=== PATIENT | female | born 1995 | race Caucasian/White ===

== ENCOUNTER 2018-04-17 20:48 | Emergency (ER) | payer OTHER ==
[2018-04-17 21:00] VITALS: BP 114/69
[2018-04-17 21:48] LABS: ABSOLUTE EOSINOPHILS # (AUTO) 0.1 10^3/uL (0.0-0.6); ABSOLUTE LYMPHOCYTES (AUTO) 2.3 10^3/uL (0.5-4.7); ABSOLUTE MONOCYTES (AUTO) 1.2 10^3/uL (0.1-1.4); ABSOLUTE NEUT (AUTO) 10.5 10^3/uL (1.7-8.2); BASOPHILS % (AUTO) 0.1 % (0-2); EOSINOPHILS % (AUTO) 0.9 % (0-6); HEMATOCRIT 30.4 % (36.0-47.0); HEMOGLOBIN 10.2 g/dL (12.0-15.5); LYMPHOCYTES % (AUTO) 16.1 % (13-45); MEAN CORPUSCULAR HGB CONC 33.6 g/dL (32.0-36.0); MEAN CORPUSCULAR VOLUME 83 fl (80-97); MONOCYTES % (AUTO) 8.3 % (3-13); PLATELET COUNT 131 10^3/uL (150-450); RED BLOOD COUNT 3.66 10^6/uL (3.72-5.28); RED CELL DISTRIBUTION WIDTH 13.9 % (11.5-14.0); SEGMENTED NEUTROPHILS % (AUTO) 74.6 % (42-78); TOTAL CELLS COUNTED % (AUTO) 100 %; WHITE BLOOD COUNT 14.1 10^3/uL (4.0-10.5)
[2018-04-17 22:00] LABS: ALANINE AMINOTRANSFERASE 13 U/L (9-52); ALBUMIN 3.7 g/dL (3.5-5.0); ALKALINE PHOSPHATASE 90 U/L (38-126); ANION GAP 8 (5-19); ASPARTATE AMINO TRANSFERASE 15 U/L (14-36); BILIRUBIN,DIRECT 0.2 mg/dL (0.0-0.4); BILIRUBIN,TOTAL 0.4 mg/dL (0.2-1.3); BLOOD UREA NITROGEN 6 mg/dL (7-20); CALCIUM 9.5 mg/dL (8.4-10.2); CARBON DIOXIDE 26 mmol/L (22-30); CHLORIDE 104 mmol/L (98-107); CREATINE KINASE 31 U/L (30-135); GLUCOSE 81 mg/dL (75-110); POTASSIUM 4.1 mmol/L (3.6-5.0); SODIUM 138.2 mmol/L (137-145); TOTAL PROTEIN 6.8 g/dL (6.3-8.2)
[2018-04-17 22:12] LABS: CREATINE KINASE MB 0.29 ng/mL (<4.55)
[2018-04-17 22:13] LABS: TROPONIN I < 0.012 ng/mL
--- NOTE | 2018-04-17 22:33 | ER Document Report ---
ED General - General Chief Complaint: Chest Pain Stated Complaint: CHEST PAIN Time Seen by Provider: 04/17/18 22:23 Notes: 23-year-old female who is 29 weeks , presents the emergency department complaining of intermittent sharp stabbing upper substernal chest pain that has been going on for the past 2 weeks. She first noticed it rolling over in bed and thenit has shown up 2 or 3 times since then. She has some shortness of breath with the pain and a general feeling of pressure but denies any nausea, vomiting or diarrhea. Denies any cough or fevers. Denies any history of DVT or PE, denies any recent travel, denies family history of DVT or PE. Denies any vaginal bleeding, vaginal discharge, states that there has been no decrease in movement and denies any complications with this or prior pregnancies. TRAVEL OUTSIDE OF THE [place] IN LAST 30 DAYS: No - Related Data Allergies/Adverse Reactions: amoxicillin Allergy (Verified 04/17/18 21:07) Past Medical History - General Information source: Patient - Social History Smoking Status: Never Smoker Chew tobacco use (# tins/day): No Frequency of alcohol use: None Drug Abuse: None Family History: None Patient has suicidal ideation: No Patient has homicidal ideation: No Renal/ Medical History: Denies: Hx Peritoneal Dialysis Review of Systems - Review of Systems Constitutional: No symptoms reported EENT: No symptoms reported Cardiovascular: See HPI Respiratory: See HPI Female Genitourinary: See HPI, -: Yes All other systems reviewed and negative Physical Exam - Vital signs Vitals: Temp Pulse Resp BP Pulse Ox 98.7 F 87 16 114/69 100 04/17/18 20:59 04/17/18 20:59 04/17/18 20:59 04/17/18 20:59 04/17/18 20:59 Interpretation: Normal - Notes Notes: GENERAL: Alert, interacts well. No acute distress. HEAD: Normocephalic, atraumatic EYES: Pupils equal, round and reactive to light, extraocular movements intact. ENT: Oral mucosa moist, tongue midline. NECK: Full range of motion, supple, trachea midline. LUNGS: Clear to auscultation bilaterally, no wheezes, rales or rhonchi, no respiratory distress. HEART: Regular rate and rhythm, no murmurs, gallops, rubs. ABDOMEN: Gravid, I can feel the baby moving during palpation, appropriate for dates, nontender, bowel sounds present in all 4 quadrants. EXTREMITIES: Moves all 4 extremities spontaneously, no edema. No cyanosis. NEUROLOGICAL: Alert and oriented x3, normal speech. PSYCH: Normal mood, normal affect. SKIN: Warm, Dry, normal turgor, no rashes or lesions noted. Course - Re-evaluation Re-evalutation: 04/17/18 22:33 CBC shows leukocytosis that could be from although in the setting of chest pain and shortness of breath I feel it is prudent to check a chest x-ray, hemoglobin of 10.2 is consistent with anemia of , CMP unremarkable, cardiac enzymes negative 04/17/18 23:33 Chest x-ray shows right lower lobe pneumonia. Patient will be started on azithromycin and discharged home. - Vital Signs Vital signs: Temp Pulse Resp BP Pulse Ox 98.7 F 87 16 114/69 100 04/17/18 20:59 04/17/18 20:59 04/17/18 20:59 04/17/18 20:59 04/17/18 20:59 - Laboratory Result Diagrams: 04/17/18 21:13 04/17/18 21:13 Laboratory results interpreted by me: 04/17/18 04/17/18 21:13 21:13 WBC 14.1 H RBC 3.66 L Hgb 10.2 L Hct 30.4 L Plt Count 131 L Absolute Neutrophils 10.5 H BUN 6 L Creatinine 0.45 L Discharge - Discharge Clinical Impression: Right lower lobe pneumonia Qualifiers: Pneumonia type: due to unspecified organism Qualified Code(s): J18.1 - Lobar pneumonia, unspecified organism Qualifiers: Weeks of gestation: 29 weeks Qualified Code(s): Z3A.29 - 29 weeks gestation of Condition: Stable Disposition: HOME, SELF-CARE Additional Instructions: Pneumonia Your examination indicates that you have pneumonia. This is an infection of the lung tissue, usually caused by bacteria or a virus. Symptoms include cough, fever, shaking chills, chest pain, shortness of breath, and coughing up bloody sputum. Treatment for bacterial pneumonia includes rest, antibiotics for 10 to 14 days, increasing your clear liquid intake, a cool mist humidifier at your bedside, and fever medication. Often, a repeat chest X-ray is performed in a few weeks--even if you feel better--to ascertain whether the infection has completely resolved and no underlying lung problem is present. You should call the physician if you develop persistent vomiting, high fever that does not respond to fever medication, increasing shortness of breath , confusion, or lethargy. Also, failure to improve within two to three days is an indication for re-examination. Prescriptions: Azithromycin 250 mg PO DAILY #4 tablet
--- NOTE | 2018-04-17 22:34 | EKG REPORT ---
SEVERITY:- NORMAL ECG - SINUS RHYTHM : Confirmed by: Angelita Lara 17-Apr-2018 22:33:03
--- NOTE | 2018-04-17 23:24 | RADIOLOGY REPORT (SQ) ---
CXR - 1 View Clinical History: Shortness of breath Comparison: None. Technique: Single frontal view of the chest is submitted for review. Findings: Interstitial opacity in the right lower lobe. The lungs are adequately expanded without effusion. The cardiac silhouette measures within normal. Pulmonary vascularity is upper limits of normal. Osseous structures are within normal limits for age. Impression: Interstitial opacity in the right lower lobe. Please correlate for pneumonia.
[2018-04-17] MEDS ORDERED: AZITHROMYCIN 250 MG TABLET PO ONE (23:32)
== END 2018-04-18 00:14 | disposition home or self-care (01) ==
LOC: ER 20:48
DX: O99.513 Diseases of the respiratory system complicating pregnancy, third trimester (principal); J18.1 Lobar pneumonia, unspecified organism; O26.893 Other specified pregnancy related conditions, third trimester; R07.89 Other chest pain; R06.02 Shortness of breath; Z3A.29 29 weeks gestation of pregnancy; Z88.0 Allergy status to penicillin
CPT/HCPCS: 36415; 71046; 80053; 82550; 82553; 84484; 85025; 93005; 93010; 99285

== ENCOUNTER 2018-04-21 16:16 | Emergency (ER) | payer OTHER ==
--- NOTE | 2018-04-21 17:26 | ER Document Report ---
ED General - General Chief Complaint: Chest Pain Stated Complaint: CHEST PAIN Time Seen by Provider: 04/21/18 17:24 Mode of Arrival: Ambulatory Information source: Patient Notes: Chief complaint: Chest pain History of complain:( obtained from----patient) 23 years old female who was diagnosed with pneumonia month and 4 days ago, treated with Zithromax. She presents again with the pain over the left side of the chest on the similar area with on and off cough. No fever chills or other constitutional symptoms. Onset: As above Duration: Gradual Severity: Mild Quality: Sharp Context: As above Exacerbating factor and relieving factors: None REVIEW OF SYSTEMS: CONSTITUTIONAL : Denies fever, chills, or sweats. Denies recent illness. EENT: Denies eye, ear, throat, or mouth pain or symptoms. Denies nasal or sinus congestion or discharge. Denies throat, tongue, or mouth swelling or difficulty swallowing. CARDIOVASCULAR: Denies chest pain. Denies palpitations or racing or irregular heart beat. Denies ankle edema. RESPIRATORY: Denies cough, cold, or chest congestion. Denies shortness of breath, difficulty breathing, or wheezing. GASTROINTESTINAL: Denies distention. Denies nausea, vomiting, or diarrhea. Denies blood in vomitus, stools, or per rectum. Denies black, tarry stools. Denies constipation. GENITOURINARY: Denies difficulty urinating, painful urination, burning, frequency, blood in urine, or discharge. FEMALE GENITOURINARY: Denies vaginal bleeding, heavy or abnormal periods, irregular periods. Denies vaginal discharge or odor. MUSCULOSKELETAL: Denies back or neck pain or stiffness. Denies joint pain or swelling. SKIN: Denies rash, lesions or sores. HEMATOLOGIC : Denies easy bruising or bleeding. LYMPHATIC: Denies swollen, enlarged glands. NEUROLOGICAL: Denies confusion or altered mental status. Denies passing out or loss of consciousness. Denies dizziness or lightheadedness. Denies headache. Denies weakness or paralysis or loss of use of either side. Denies problems with gait or speech. Denies sensory loss, numbness, or tingling. Denies seizures. PSYCHIATRIC: Denies anxiety or stress. Denies depression, suicidal ideation, or homicidal ideation. ALL OTHER SYSTEMS REVIEWED AND NEGATIVE. PHYSICAL EXAMINATION: GENERAL: Well-appearing, well-nourished and in no acute distress. HEAD: Atraumatic, normocephalic. EYES: Pupils equal round and reactive to light, extraocular movements intact, conjunctiva are normal. ENT: Nares patent, oropharynx clear without exudates. Moist mucous membranes. NECK: Normal range of motion, supple without lymphadenopathy LUNGS: Breath sounds clear to auscultation bilaterally and equal. No wheezes rales or rhonchi. HEART: Regular rate and rhythm without murmurs ABDOMEN: Soft, nontender, nondistended abdomen. No guarding, no rebound. No masses appreciated. Examination of genitals-deferred Musculoskeletal: Normal range of motion, no pitting or edema. No cyanosis. NEUROLOGICAL: Cranial nerves grossly intact. Normal speech, normal gait. Normal sensory, motor exams PSYCH: Normal mood, normal affect. SKIN: Warm, Dry, normal turgor, no rashes or lesions noted. Dictation was performed using [employer] voice recognition software TRAVEL OUTSIDE OF THE [place] IN LAST 30 DAYS: No - HPI Notes: Dictated - Related Data Allergies/Adverse Reactions: amoxicillin Allergy (Verified 04/21/18 17:13) Past Medical History - Social History Smoking Status: Never Smoker Chew tobacco use (# tins/day): No Frequency of alcohol use: None Drug Abuse: None Family History: None, Reviewed & Not Pertinent Patient has suicidal ideation: No Patient has homicidal ideation: No Renal/ Medical History: Denies: Hx Peritoneal Dialysis Past Surgical History: Reports: Hx Cholecystectomy Review of Systems - Review of Systems Notes: Dictated Physical Exam - Vital signs Vitals: Temp Pulse Resp BP Pulse Ox 99.0 F 84 16 115/60 100 04/21/18 16:56 04/21/18 16:56 04/21/18 16:56 04/21/18 16:56 04/21/18 16:56 - Notes Notes: Dictated Course - Vital Signs Vital signs: Temp Pulse Resp BP Pulse Ox 99.0 F 84 16 115/60 100 04/21/18 16:56 04/21/18 16:56 04/21/18 16:56 04/21/18 16:56 04/21/18 16:56 - Diagnostic Test Radiology reviewed: Image reviewed, Reports reviewed - Persistent right lower lobe increased markings. Radiology results interpreted by me: 04/21/18 18:33 Compression of the x-ray from the eighth 10/2017 to today's x-ray there is marked improvement of the right lower lobe infiltrate but still show some increased bronchovascular markings. Discharge - Discharge Clinical Impression: Chest wall pain Right lower lobe pneumonia Qualifiers: Pneumonia type: due to unspecified organism Qualified Code(s): J18.1 - Lobar pneumonia, unspecified organism Condition: Fair Disposition: HOME, SELF-CARE Instructions: Chest Wall Pain ([facility]) Prescriptions: Azithromycin [Zithromax 250 mg Tablet] 250 mg PO ASDIR PRN #6 tablet PRN Reason:
--- NOTE | 2018-04-21 17:47 | RADIOLOGY REPORT (SQ) ---
EXAM DESCRIPTION: CHEST 2 VIEWS COMPLETED DATE/TIME: 04/21/2018 5:34 pm REASON FOR STUDY: Pneumonia COMPARISON: 04/17/2018 EXAM PARAMETERS: NUMBER OF VIEWS: two views TECHNIQUE: Digital Frontal and Lateral radiographic views of the chest acquired. RADIATION DOSE: NA LIMITATIONS: none FINDINGS: LUNGS AND PLEURA: Again there is some prominence of the bronchovascular markings extending into the right lung base. No acute consolidations or pleural effusions are identified. No pneumoth orax is seen MEDIASTINUM AND HILAR STRUCTURES: No masses or contour abnormalities. HEART AND VASCULAR STRUCTURES: Heart normal size. No evidence for failure. BONES: No acute findings. HARDWARE: None in the chest. OTHER: No other significant finding. IMPRESSION: Again there is some prominence of the bronchovascular markings extending into the right lung base. No acute consolidations or pleural effusions are identified. Other findings as noted abo ve TECHNICAL DOCUMENTATION: JOB ID: [id number] [employer]- All Rights Reserved Reading location - IP/workstation name: [email or web address]
[2018-04-21 19:35] VITALS: BP 111/60
== END 2018-04-21 19:35 | disposition home or self-care (01) ==
LOC: ER 16:16
DX: J18.1 Lobar pneumonia, unspecified organism (principal); R07.9 Chest pain, unspecified; Z90.49 Acquired absence of other specified parts of digestive tract; Z88.0 Allergy status to penicillin
CPT/HCPCS: 71046; 99284

== ENCOUNTER 2018-06-30 03:26 | Inpatient (IN) | payer OTHER ==
[2018-06-30 04:10] LABS: APPEARANCE,URINE SLIGHTLY-CLOUDY; BILIRUBIN,URINE NEGATIVE (NEGATIVE); COLOR,URINE YELLOW; GLUCOSE, URINE NEGATIVE (NEGATIVE); KETONES,URINE NEGATIVE (NEGATIVE); LEUKOCYTE ESTERASE,URINE SMALL (NEGATIVE); NITRITE,URINE NEGATIVE (NEGATIVE); PROTEIN,URINE NEGATIVE (NEGATIVE); URINE SPECIFIC GRAVITY 1.011; UROBILINOGEN,URINE NEGATIVE mg/dL (<2.0)
[2018-06-30 04:31] LABS: URINE AMPHETAMINES SCREEN NEGATIVE; URINE BARBITURATES SCREEN NEGATIVE; URINE BENZODIAZEPINES SCREEN NEGATIVE; URINE COCAINE SCREEN NEGATIVE; URINE MARIJUANA (THC) SCREEN NEGATIVE; URINE METHADONE SCREEN NEGATIVE; URINE PHENCYCLIDINE SCREEN NEGATIVE
[2018-06-30] MEDS ORDERED: RINGERS SOLUTION,LACTATED 1,000 ML IV ONE (06:15)
[2018-06-30] MEDS ORDERED: LIDOCAINE 1% INJ-PF (10 MG/ML) 30 ML SDV ONE (06:27)
[2018-06-30] MEDS ORDERED: OXYTOCIN/NORMAL SALINE 20 UNIT/1,000 ML RTUINJ ONE (06:27)
[2018-06-30] MEDS ORDERED: MISOPROSTOL 0.2 MG TABLET ONE ×2 (06:27→08:09)
--- NOTE | 2018-06-30 07:02 | Admission Physical ---
Datetime Report Generated by CPN: 06/30/2018 07:02 CURRENT ADMISSION Chief Complaint: Uterine Contractions Indication for Induction: Not Applicable Admit Impression : Term, Intrauterine ; Active Labor; Intact Membranes Admit Plan: Admit to Unit; Initiate Labor Protocol ALLERGIES Medication Allergies: Yes Medication Allergies: Amoxicillin (06/30/2018) Latex: No Latex Allergies OBSTETRICAL HISTORY EDC: 07/03/2018 00:00 : 2 Para: 1 Term: 1 : 0 SAB: 0 IAB: 0 Ectopic: 0 Livin Cesareans: 0 VBACs: 0 Multiple Births: 0 Gestational Diabetes: No Rh Sensitization: No Incompetent Cervix: No JAC: No Infertility: No ART Treatment: No Uterine Anomaly: No IUGR: No Hx Previous C/S: No Macrosomia: No Hx Loss/Stillborn: No PIH: No Hx : No Placenta Previa/Abruption: No Depression/PP Depression: No PTL/PROM: No Post Hemorrhage: No Current Procedures: Ultrasound; NST Obstetrical History Comments: G1- Baby girl born 11/2014 @ 41 weeks vaginal delivery G2- Current SEE RECORDS Alcohol: No Marijuana : No Cocaine: No Other Illicit Drugs: No Cigarettes: Never Smoker. [id number] MEDICAL HISTORY Diabetes: No Blood Transfusion: No Pulmonary Disease (Asthma, TB): No Breast Disease: No Hypertension: No Drafter Electrical Surgery: No Heart Disease: No Hosp/Surgery: Yes Autoimmune Disorder: No Anesthetic Complications: No Kidney Disease: No Abnormal Pap Smear: No Neuro/Epilepsy: No Psychiatric Disorders: No Other Medical Diseases: No Hepatitis/Liver Disease: No Significant Family History: No Varicosities/Phlebitis: No Trauma/Violence : No Thyroid Dysfunction: No Medical History Comments: Cholescystectomy 2017, wisdom teeth removed INFECTIOUS HISTORY Gonorrhea: No Genital Herpes: No Chlamydia: No Tuberculosis: No Syphilis: No Hepatitis: No HIV/AIDS Exposure: No Rash or Viral Illness: No HPV: No PHYSICAL EXAM General: Normal HEENT: Normal Neurologic: Normal Thyroid: Deferred Heart: Normal Lungs: Normal Breast: Deferred Back: Normal Abdomen: Normal Genitourinary Exam: Normal Extremities: Normal DTRs: Normal Pelvic Type: Adequate Vital Signs: Reviewed VAGINAL EXAM Dilatation: 4 Effacement: 80 Station: -1 Contraction Comments: q 2-3 MEMBRANES Membranes: Intact FETUS A EGA: 39.4 Monitoring: External US FHR- Baseline: 125 Variability: Moderate 6-25bpm Accelerations: 15X15 Decelerations: None FHR Category: Category I Presentation: Vertex Admit Comment: 23yo at 39+4ega presents with regular uterine ctx and noted cervical change from 1cm to 4cm. Niece has turners syndrome - Informaseq normal. Pneumonia 04/21/2018 - treated and resolved. GBS negative. Admit to Labor and delivery for active labor. Anticipate . PLANS FOR LABOR AND DELIVERY Labor and Delivery: None Pain Management: Epidural Feeding Preference: Breast Benefit of Breast Feed Discussed: Yes Circumcision: N/A INFORMED CONSENT Signature: with User ID: [email or web address]
[2018-06-30] MEDS ORDERED: FENTANYL/BUPIVACAINE/NS/PF 0 MCG/0 ML RTUINJ EPI ONE (07:20)
[2018-06-30] MEDS ORDERED: EPHEDRINE SULFATE INJ 50 MG/1 ML AMPULE ONE (07:20)
[2018-06-30] MEDS ORDERED: BUPIVACAINE HCL 0.5 % INJ/PF 30 ML SDV ONE (07:21)
[2018-06-30 07:24] LABS: ABSOLUTE EOSINOPHILS # (AUTO) 0.1 10^3/uL (0.0-0.6); ABSOLUTE LYMPHOCYTES (AUTO) 1.7 10^3/uL (0.5-4.7); ABSOLUTE MONOCYTES (AUTO) 1.1 10^3/uL (0.1-1.4); ABSOLUTE NEUT (AUTO) 11.1 10^3/uL (1.7-8.2); BASOPHILS % (AUTO) 0.3 % (0-2); EOSINOPHILS % (AUTO) 0.5 % (0-6); HEMOGLOBIN 10.2 g/dL (12.0-15.5); LYMPHOCYTES % (AUTO) 11.9 % (13-45); MEAN CORPUSCULAR HEMOGLOBIN 26.1 pg (27.0-33.4); MEAN CORPUSCULAR HGB CONC 32.8 g/dL (32.0-36.0); MEAN CORPUSCULAR VOLUME 80 fl (80-97); MONOCYTES % (AUTO) 7.8 % (3-13); PLATELET COUNT 101 10^3/uL (150-450); RED CELL DISTRIBUTION WIDTH 16.4 % (11.5-14.0); SEGMENTED NEUTROPHILS % (AUTO) 79.5 % (42-78); TOTAL CELLS COUNTED % (AUTO) 100 %
[2018-06-30] MEDS ORDERED: RINGERS SOLUTION,LACTATED 1,000 ML IV PRN (07:37)
[2018-06-30] MEDS ORDERED: FENTANYL CITRATE INJ/PF 100 MCG/2 ML AMPUL ONE (08:05)
[2018-06-30] MEDS ORDERED: PROMETHAZINE HCL 25 MG TABLET PO PRN (08:52)
[2018-06-30] MEDS ORDERED: PSEUDOEPHEDRINE HCL 30 MG TABLET PO PRN (08:52)
[2018-06-30] MEDS ORDERED: GLYCERIN/WITCH HAZEL LEAF 1 EACH MED..PAD TP PRN (08:52)
[2018-06-30] MEDS ORDERED: DIBUCAINE 1% OINTMENT 28 GM TP PRN (08:52)
[2018-06-30] MEDS ORDERED: ACETAMINOPHEN WITH CODEINE #3 TABLET PO PRN (08:52)
[2018-06-30] MEDS ORDERED: BENZOCAINE/MENTHOL AEROSOL SPRAY 56 ML TOP PRN (08:52)
[2018-06-30] MEDS ORDERED: OXYTOCIN/NORMAL SALINE 20 UNIT/1,000 ML RTUINJ IV PRN (08:52)
[2018-06-30] MEDS ORDERED: PROMETHAZINE HCL 25 MG SUPP.RECT PR PRN (08:52)
[2018-06-30] MEDS ORDERED: NA PHOS,M-B/NA PHOS,DI-BA (ADULT) 133 ML ENEMA PR PRN (08:52)
[2018-06-30] MEDS ORDERED: MAGNESIUM HYDROXIDE SUSP 30 ML UDCUP PO PRN (08:52)
[2018-06-30] MEDS ORDERED: DIPHENHYDRAMINE HCL 25 MG CAPSULE PO PRN (08:52)
[2018-06-30] MEDS ORDERED: MEASLES,MUMPS&RUBELLA VACC/PF 0.5 ML VIAL SUBCUT PRN (08:52)
[2018-06-30] MEDS ORDERED: DIPH/PERTUSS(ACELL)/TETANUS VAC/PF 0.5 ML SYR (>=10YO) IM PRN (08:52)
[2018-06-30] MEDS ORDERED: ACETAMINOPHEN 325 MG TABLET PO PRN (08:52)
[2018-06-30] MEDS ORDERED: PROMETHAZINE HCL INJ 25 MG/1 ML VIAL IV PRN (08:52)
[2018-06-30] MEDS ORDERED: ACETAMINOPHEN WITH CODEINE #3 TABLET ONE (08:54)
[2018-06-30] MEDS: ACETAMINOPHEN WITH CODEINE #3 TABLET PO PRN ×2 (08:56→19:22)
--- NOTE | 2018-06-30 10:26 | Delivery Summary ---
Del Sum A-C Datetime Report Generated by CPN: 06/30/2018 10:26 DELIVERY PERSONNEL DELIVERY PERSONNEL: [id number] Delivery Doctor:: Carolann Hunt MD Labor and Delivery Nurse:: Digna Denis RNmap colorer Nurse:: Jacqui De La O RN Economics Instructor/CDL DRIVER: Candice Liu, RESEARCH PROFESSOR Economics Instructor/CDL DRIVER: Sherrie Fuller CNA II MATERNAL INFORMATION Delivery Anesthesia: Pudendal Medications After Delivery: Pitocin Drip 20 Units/1000ml NSS; Cytotec 1000mcg Per Rectum/Vagina Meds After Delivery Comment: Pitocin 20 units in 1 L NS bolusing per order Maternal Complications: Precipitous Labor (<3hrs) Provider Comments: SROM now complete and unable to get epidural. Pudendal block performed after consent obtained. VFI delivered in YENI presentation. No nuchal cord. Shoulders and body delivered without difficulty. Cord doubly clamped and cut and infant to maternal abdomen for NRP. FF at U with mild lower uterine segment atony. Cytotec 1000mcg pr placed. Good hemostasis. Mother and baby stable upon provider leaving the room. LABOR SUMMARY EDC: 07/03/2018 00:00 No. Babies in Womb: 1 Attempted: No Labor Anesthesia: None LABOR INFORMATION Reason for Induction: Not Applicable Onset of Labor: 06/30/2018 00:30 Complete Dilatation: 06/30/2018 07:53 Oxytocin: N/A Group B Beta Strep: Negative Antibiotics # of Doses: 0 Antibiotics Time of Last Dose: n/a Name of Antibiotic Given: n/a Steroids Given: None Reason Steroids Not Administered: Not Applicable MEMBRANES Membranes Rupture Method: Spontaneous Rupture of Membranes: 06/30/2018 07:46 Length of Rupture (hr): 0.27 Amniotic Fluid Color: Clear Amniotic Fluid Amount: Moderate Amniotic Fluid Odor: Normal STAGES OF LABOR Stage 1 hr: 7 Stage 1 min: 23 Stage 2 hr: 0 Stage 2 min: 9 Stage 3 hr: 0 Stage 3 min: 5 Total Time in Labor hr: 7 Total Time in Labor min: 37 VAGINAL DELIVERY Episiotomy: None Laceration #1: Perineal Laceration Extension #1: First Degree Laceration Repair: Yes Laceration Repair Note: 1st degree repaired with good hemostasis Sponge Count Correct: Yes Sharps Count Correct: Yes CSECTION DELIVERY Primary Indication: N/A Secondary Indication: N/A CSection Incidence: Primary Labor: N/A Elective: N/A CSection Incision: N/A BABY A INFORMATION Delivery Date/Time: 06/30/2018 08:02 Method of Delivery: Vaginal Born in Route : No : N/A Forceps: N/A Vacuum Extraction: N/A Shoulder Dystocia : No PRESENTATION/POSITION BABY A Presentation: Cephalic Cephalic Presentation: Vertex Vertex Position: Left Occipital Anterior Breech Presentation: N/A PLACENTA INFORMATION BABY A Placenta Delivery Time : 06/30/2018 08:07 Placenta Method of Delivery: Spontaneous Placenta Status: Delivered SCORES BABY A Heart Rate 1 min: >100 bpm Resp Effort 1 min: Good Cry Reflex Irritability 1 min: Cough or Sneeze or Pulls Away Muscle Tone 1 min: Active Motion Color 1 min: Blue/Pale Resuscitation Effort 1 min: Tactile Stimulation SCORE 1 MIN: 8 Heart Rate 5 min: >100 bpm Resp Effort 5 min: Good Cry Reflex Irritability 5 min: Cough or Sneeze or Pulls Away Muscle Tone 5 min: Active Motion Color 5 min: Body [place], Extremities Blue SCORE 5 MIN: 9 INFANT INFORMATION BABY A Gestational Age at Delivery: 39.4 Gestational Status: Full Term- 39- 40.6 Weeks Outcome : Liveborn Infant Condition : Stable Sex: Female IDENTIFICATION BABY A Verification Date/Time: 06/30/2018 08:19 ID Band Number: [id number] Mother's Name Verified: Yes RN Verifying : Chelle De La O, RN, RNeisha Sharif, RN WEIGHT/LENGTH BABY A Birthweight (gm): 3910 Infant Weight (lb): 8 Infant Weight (oz): 10 Infant Length (in): 20.50 Infant Length (cm): 52.07 CORD INFORMATION BABY A No. Cord Vessels: 3 Nuchal Cord : N/A Cord Blood Taken: Yes-For Storage (Mom's Blood type +) Suction: None ASSESSMENT BABY A Infant Complications: None Physical Findings at Delivery: Molding of the Head Respirations: Appears Normal Skin to Skin: Yes Skin to Skin Time (min): 60 Kerfer Machine Operator/ALS Called : No Care By: Chelle De La O, RN Transferred To: Remains with Mother BABY B INFORMATION : N/A SIGNATURES Signature: with User ID: [email or web address]
[2018-06-30 10:28] LABS: HEMATOCRIT 29.3 % (36.0-47.0); HEMOGLOBIN 9.7 g/dL (12.0-15.5); MEAN CORPUSCULAR HEMOGLOBIN 26.5 pg (27.0-33.4); MEAN CORPUSCULAR HGB CONC 33.3 g/dL (32.0-36.0); MEAN CORPUSCULAR VOLUME 80 fl (80-97); PLATELET COUNT 122 10^3/uL (150-450); RED BLOOD COUNT 3.68 10^6/uL (3.72-5.28); RED CELL DISTRIBUTION WIDTH 16.8 % (11.5-14.0); WHITE BLOOD COUNT 22.2 10^3/uL (4.0-10.5)
[2018-06-30 11:01] LABS: ABSOLUTE LYMPHOCYTES# (MANUAL) 0.9 10^3/uL (0.5-4.7); ABSOLUTE MONOCYTES # (MANUAL) 0.4 10^3/uL (0.1-1.4); ABSOLUTE NEUTROPHILS# (MANUAL) 20.9 10^3/uL (1.7-8.2); ANISOCYTOSIS 1+; BAND NEUTROPHILS % (MANUAL) 2 % (3-5); BASOPHILS % (MANUAL) 0 % (0-2); EOSINOPHILS % (MANUAL) 0 % (0-6); HYPOCHROMASIA SLIGHT; LYMPHOCYTES % (MANUAL) 4 % (13-45); MONOCYTES % (MANUAL) 2 % (3-13); OVALOCYTES SLIGHT; PLATELET COMMENT DECREASED; POIKILOCYTOSIS SLIGHT; POLYCHROMASIA SLIGHT; SEGMENTED NEUTROPHILS % (MAN) 92 % (42-78); TOTAL CELLS COUNTED 100; TOXIC GRANULATION SLIGHT
[2018-06-30] MEDS: FERROUS SULFATE 325 MG TABLET PO SCH ×2 (17:16→20:56)
[2018-06-30] MEDS: DOCUSATE SODIUM 100 MG CAPSULE PO SCH ×2 (17:16→20:56)
[2018-06-30] MEDS: PRENATAL VITAMIN W DHA CAPSULE PO SCH (20:56)
[2018-06-30] MEDS: FAMOTIDINE 20 MG TABLET PO SCH ×2 (20:56→21:49)
[2018-06-30] MEDS: SENNOSIDES/DOCUSATE 8.6-50 MG 1 EACH TABLET PO SCH (20:56)
[2018-07-01 08:38] LABS: HEMATOCRIT 28.3 % (36.0-47.0); HEMOGLOBIN 9.5 g/dL (12.0-15.5); MEAN CORPUSCULAR HEMOGLOBIN 26.6 pg (27.0-33.4); MEAN CORPUSCULAR HGB CONC 33.5 g/dL (32.0-36.0); MEAN CORPUSCULAR VOLUME 79 fl (80-97); PLATELET COUNT 118 10^3/uL (150-450); RED BLOOD COUNT 3.56 10^6/uL (3.72-5.28); RED CELL DISTRIBUTION WIDTH 16.9 % (11.5-14.0); WHITE BLOOD COUNT 13.8 10^3/uL (4.0-10.5)
--- NOTE | 2018-07-01 09:12 | PDOC PROGRESS REPORT ---
Subjective-OB Progress Note for:: 07/01/18 Subjective: Doing well, no c/o, ambulating, Physical Exam (OB) Vital Signs: Temp Pulse Resp BP Pulse Ox 98.0 F 81 16 105/63 99 07/01/18 08:08 07/01/18 08:08 07/01/18 08:08 07/01/18 08:08 07/01/18 08:08 Intake & Output 06/30/18 07/01/18 07/02/18 06:59 06:59 06:59 Intake Total 300 Balance 300 Weight 78.018 kg - PIH/Pre-Eclampsia Headache: Absent Epigastric Pain: No Visual Changes: No - Lochia Lochia Amount: Small 10-25 ml Lochia Color: Rubra/Red - Abdomen Description: Tender, Soft, Round Hernia Present: No Fundal Description: Firm, Midline Fundal Height: u/u - u/2 Objective-Diagnostic Laboratory: 07/01/18 07:46 06/30/18 07/01/18 09:38 07:46 WBC 22.2 H 13.8 H RBC 3.68 L 3.56 L Hgb 9.7 L 9.5 L Hct 29.3 L 28.3 L MCV 80 79 L MCH 26.5 L 26.6 L MCHC 33.3 33.5 RDW 16.8 H 16.9 H Plt Count 122 L 118 L Seg Neutrophils % Not Reportable Lymphocytes % Not Reportable Monocytes % Not Reportable Eosinophils % Not Reportable Basophils % Not Reportable Absolute Neutrophils Not Reportable Absolute Lymphocytes Not Reportable Absolute Monocytes Not Reportable Absolute Eosinophils Not Reportable Absolute Basophils Not Reportable Assessment and Plan(PN) - Assessment and Plan (1) Delivery normal Is this a current diagnosis for this admission?: Yes - Time Spent with Patient Time with patient: Less than 15 minutes Medications reviewed and adjusted accordingly: Yes - Disposition Anticipated Discharge: Home Within: within 48 hours
[2018-07-01] MEDS: FAMOTIDINE 20 MG TABLET PO SCH ×2 (09:26→21:47)
[2018-07-01] MEDS: PRENATAL VITAMIN W DHA CAPSULE PO SCH (09:26)
[2018-07-01] MEDS: DOCUSATE SODIUM 100 MG CAPSULE PO SCH ×2 (09:26→17:35)
[2018-07-01] MEDS: SENNOSIDES/DOCUSATE 8.6-50 MG 1 EACH TABLET PO SCH (09:26)
[2018-07-01] MEDS: FERROUS SULFATE 325 MG TABLET PO SCH ×2 (09:26→17:35)
[2018-07-02] MEDS: FERROUS SULFATE 325 MG TABLET PO SCH (10:03)
[2018-07-02] MEDS: DOCUSATE SODIUM 100 MG CAPSULE PO SCH (10:03)
[2018-07-02] MEDS: FAMOTIDINE 20 MG TABLET PO SCH (10:03)
[2018-07-02] MEDS: PRENATAL VITAMIN W DHA CAPSULE PO SCH (10:03)
[2018-07-02] MEDS: SENNOSIDES/DOCUSATE 8.6-50 MG 1 EACH TABLET PO SCH (10:03)
--- NOTE | 2018-07-02 10:16 | PDOC DISCHARGE SUMMARY ---
Final Diagnosis Discharge Date: 07/02/18 - Day #2, , A+, rubella Immune - Final Diagnosis (1) Normal course Is this a current diagnosis for this admission?: Yes (2) hemorrhage Is this a current diagnosis for this admission?: Yes (3) Active labor at term Is this a current diagnosis for this admission?: Yes (4) Delivery normal Is this a current diagnosis for this admission?: Yes Discharge Data - Discharge Medication Home Medications: Vit,Calc76/Iron/Folic [Pnv 29-1 Tablet] 1 tab PO DAILY 06/30/18 Reason(s) for Admission: Onset of Labor, Vaginal Bleading Procedures: Ultrasound Intrapartum Procedure(s): Spontaneous Vaginal Delivery Complication(s): Laceration-Perineal Laceration-Degree: 1st - Diagnosis Test Laboratory: Temp Pulse Resp BP Pulse Ox 98.7 F 82 16 110/67 98 07/02/18 08:09 07/02/18 08:09 07/02/18 08:09 07/02/18 08:09 07/02/18 08:09 06/30/18 06/30/18 06/30/18 03:45 07:07 09:38 RBC 3.90 3.68 L Hgb 10.2 L 9.7 L Hct 31.0 L 29.3 L Urine Opiates Screen NEGATIVE 07/01/18 07:46 RBC 3.56 L Hgb 9.5 L Hct 28.3 L Urine Opiates Screen - Discharge information/Instructions Discharge Activity: Activity As Tolerated, No Lifting Over 10 Pounds, Pelvic Rest Discharge Diet: As Tolerated, Regular Disposition: HOME, SELF-CARE Follow up with: [facility] in: 4, Weeks
[2018-07-02 10:55] VITALS: BP 107/66
== END 2018-07-02 13:24 | disposition home or self-care (01) | DRG 807 ==
LOC: LC 03:26 → LR 06:17 → 2S 10:21
PROVIDERS: ADMIT Student in an Organized Health Care Education/Training Program; ATTEND Student in an Organized Health Care Education/Training Program
PROC: 10E0XZZ Delivery of Products of Conception, External Approach (ICD-10-PCS; principal; 2018-06-30)
PROC: 0HQ9XZZ Repair Perineum Skin, External Approach (ICD-10-PCS; 2018-06-30)
DX: O62.3 Precipitate labor (principal); Z37.0 Single live birth; O70.0 First degree perineal laceration during delivery; Z3A.39 39 weeks gestation of pregnancy
CPT/HCPCS: 36415; 80307; 81005; 85025; 85027; 86592; 86850; 86900; 86901; 90471; 90686; G0008; J2590; J3010; J3490

== ENCOUNTER 2020-08-08 07:34 | Outpatient (CLI) | payer OTHER ==
[2020-08-08] MEDS ORDERED: RINGERS SOLUTION,LACTATED 1,000 ML IV PRN (08:21)
[2020-08-08] MEDS ORDERED: RINGERS SOLUTION,LACTATED 1,000 ML IV ONE (08:21)
[2020-08-08 08:35] LABS: APPEARANCE,URINE CLEAR; BILIRUBIN,URINE NEGATIVE (NEGATIVE); COLOR,URINE YELLOW; GLUCOSE, URINE NEGATIVE (NEGATIVE); KETONES,URINE NEGATIVE (NEGATIVE); LEUKOCYTE ESTERASE,URINE MODERATE (NEGATIVE); NITRITE,URINE NEGATIVE (NEGATIVE); PROTEIN,URINE 30 mg/dL (NEGATIVE); URINE SPECIFIC GRAVITY 1.016; UROBILINOGEN,URINE NEGATIVE mg/dL (<2.0)
[2020-08-08 09:11] LABS: URINE AMPHETAMINES SCREEN NEGATIVE; URINE BARBITURATES SCREEN NEGATIVE; URINE BENZODIAZEPINES SCREEN NEGATIVE; URINE COCAINE SCREEN NEGATIVE; URINE MARIJUANA (THC) SCREEN NEGATIVE; URINE METHADONE SCREEN NEGATIVE; URINE PHENCYCLIDINE SCREEN NEGATIVE
--- NOTE | 2020-08-08 11:29 | Non Stress Test Report ---
Non Stress Test Datetime Report Generated by CPN: 08/08/2020 11:29 INDICATION Indication for Study (NST) Other: IUP at 39+1 weeks MONITORING Monitor Explained: Monitor Explained; Test Explained Time on Monitor: 08/08/2020 07:50 Time off Monitor: 08/08/2020 09:29 NST Duration: 99 NST INTERVENTIONS NST Interventions: IV Fluids Physician Notified NST: N Burton CNM BABY A: [id number] BABY A Movement : Present Contraction Frequency : 3-5 FHR Baseline : 150 Accelerations : 15X15 Decelerations : None Variability : Moderate 6-25bpm NST Review: Meets Criteria for Reactive NST NST Review and Verified By : Kyle Mclean, RN NST Results: Reactive NST REPORT Report Trigger: Send Report
== END 2020-08-08 10:54 | disposition home or self-care (01) ==
LOC: LC 07:34
PROVIDERS: ATTEND Obstetrics & Gynecology
DX: O47.1 False labor at or after 37 completed weeks of gestation (principal); Z3A.39 39 weeks gestation of pregnancy
CPT/HCPCS: 80307; 81005

== ENCOUNTER 2020-08-12 20:29 | Inpatient (IN) | payer OTHER, MEDICAID ==
[2020-08-12] MEDS ORDERED: MISOPROSTOL 0.2 MG TABLET ONE (20:42)
[2020-08-12] MEDS ORDERED: OXYTOCIN 10 UNIT/ML VIAL ONE (20:42)
[2020-08-12] MEDS ORDERED: LIDOCAINE 1% INJ-PF (10 MG/ML) 30 ML SDV ONE (20:42)
[2020-08-12] MEDS ORDERED: OXYTOCIN/0.9 % SODIUM CHLORIDE 30 UNIT/500 ML RTUINJ ONE (20:42)
[2020-08-12] MEDS ORDERED: RINGERS SOLUTION,LACTATED 1,000 ML IV ONE (20:43)
[2020-08-12] MEDS ORDERED: RINGERS SOLUTION,LACTATED 1,000 ML IV PRN (20:43)
[2020-08-12] MEDS ORDERED: VANCOMYCIN HCL 1,000 MG in DEXTROSE 5%-WATER 250 ML IV SCH ×2 (20:45→22:00)
[2020-08-12] MEDS ORDERED: FENTANYL CITRATE INJ/PF 100 MCG/2 ML AMPUL ONE (21:06)
[2020-08-12] MEDS ORDERED: FENTANYL CITRATE INJ/PF 100 MCG/2 ML AMPUL IV ONE (21:06)
--- NOTE | 2020-08-12 21:07 | Admission Physical ---
Datetime Report Generated by CPN: 08/12/2020 21:07 CURRENT ADMISSION Chief Complaint: Uterine Contractions Indication for Induction: Not Applicable Admit Impression : Term, Intrauterine ; Active Labor Admit Plan: Admit to Unit; Initiate Labor Protocol ALLERGIES Medication Allergies: Unknown Medication Allergies: amoxicillin (08/08/2020) Latex: No Latex Allergies OBSTETRICAL HISTORY EDC: 08/14/2020 00:00 : 3 Para: 2 Term: 2 : 0 Cesareans: 0 Gestational Diabetes: No Rh Sensitization: No Incompetent Cervix: No JAC: No Infertility: No ART Treatment: No Uterine Anomaly: No IUGR: No Hx Previous C/S: No Macrosomia: No Hx Loss/Stillborn: No PIH: No Hx : No Placenta Previa/Abruption: No Depression/PP Depression: No PTL/PROM: No Post Hemorrhage: Yes Current Procedures: Ultrasound Obstetrical History Comments: G1-10/28/2016, 41 weeks, female, vaginal G2-07/03/2018, 39.4, Female, Vaginal, Pt stated she "might have hemmorhaged withthe last delivery" G3: current SEE RECORDS Alcohol: No Marijuana : No Cocaine: No Other Illicit Drugs: No Cigarettes: Never Smoker. [id number] MEDICAL HISTORY Diabetes: No Blood Transfusion: No Pulmonary Disease (Asthma, TB): No Breast Disease: No Hypertension: No Waste Elimination Surgery: No Heart Disease: No Hosp/Surgery: Yes Autoimmune Disorder: No Anesthetic Complications: No Kidney Disease: No Abnormal Pap Smear: No Neuro/Epilepsy: No Psychiatric Disorders: No Other Medical Diseases: No Hepatitis/Liver Disease: No Significant Family History: No Varicosities/Phlebitis: No Trauma/Violence : No Thyroid Dysfunction: No Medical History Comments: Gall Bladder removal 2017, childbirth x2 INFECTIOUS HISTORY Gonorrhea: No Genital Herpes: No Chlamydia: No Tuberculosis: No Syphilis: No Hepatitis: No HIV/AIDS Exposure: No Rash or Viral Illness: No HPV: No PHYSICAL EXAM General: Normal HEENT: Normal Neurologic: Normal Thyroid: Deferred Heart: Normal Lungs: Normal Breast: Deferred Back: Normal Abdomen: Normal Genitourinary Exam: Normal Extremities: Normal DTRs: Normal Pelvic Type: Adequate Vital Signs: Reviewed VAGINAL EXAM Dilatation: 6 Effacement: 100 Station: -2 Contraction Comments: q 2-3 MEMBRANES Membranes: Intact FETUS A EGA: 39.5 Monitoring: External US FHR- Baseline: 145 Variability: Moderate 6-25bpm Accelerations: 15X15 Decelerations: None Presentation: Vertex Admit Comment: 25yo at 39+5ega presents for active labor and uterine contractions. 6cm. GBS pos - allergic to PCN and clinda resistant - vancomycin. History of precip. Vancomycin started. Gestational thrombocytopenia last . Will need to wait for labs to return for epidural. Will try fentanyl if needed for pain due to shortacting. COnsented for pudendal as she had pudendal with her last delivery in 2018. Admit for active labor and anticipate PLANS FOR LABOR AND DELIVERY Labor and Delivery: None Pain Management: Epidural Feeding Preference: Breast Benefit of Breast Feed Discussed: Yes Circumcision: N/A INFORMED CONSENT Informed Consent Obtained: Vaginal Delivery; Risks, Benefits and Alternatives Discussed Signature: with User ID: [email or web address]
[2020-08-12 21:13] LABS: ABSOLUTE EOSINOPHILS # (AUTO) 0.1 10^3/uL (0.0-0.6); ABSOLUTE LYMPHOCYTES (AUTO) 2.5 10^3/uL (0.5-4.7); ABSOLUTE MONOCYTES (AUTO) 1.3 10^3/uL (0.1-1.4); BASOPHILS % (AUTO) 0.3 % (0-2); EOSINOPHILS % (AUTO) 0.7 % (0-6); HEMATOCRIT 34.7 % (36.0-47.0); HEMOGLOBIN 11.7 g/dL (12.0-15.5); MEAN CORPUSCULAR HGB CONC 33.8 g/dL (32.0-36.0); MEAN CORPUSCULAR VOLUME 86 fl (80-97); MONOCYTES % (AUTO) 9.6 % (3-13); PLATELET COUNT 106 10^3/uL (150-450); RED BLOOD COUNT 4.04 10^6/uL (3.72-5.28); RED CELL DISTRIBUTION WIDTH 13.7 % (11.5-14.0); SEGMENTED NEUTROPHILS % (AUTO) 71.4 % (42-78); TOTAL CELLS COUNTED % (AUTO) 100 %; WHITE BLOOD COUNT 14.1 10^3/uL (4.0-10.5)
[2020-08-12 21:21] LABS: APPEARANCE,URINE CLOUDY; BILIRUBIN,URINE NEGATIVE (NEGATIVE); COLOR,URINE RED; GLUCOSE, URINE NEGATIVE (NEGATIVE); KETONES,URINE NEGATIVE (NEGATIVE); LEUKOCYTE ESTERASE,URINE MODERATE (NEGATIVE); NITRITE,URINE NEGATIVE (NEGATIVE); PROTEIN,URINE 100 mg/dL (NEGATIVE); URINE SPECIFIC GRAVITY 1.013; UROBILINOGEN,URINE NEGATIVE mg/dL (<2.0)
[2020-08-12] MEDS ORDERED: FENTANYL/BUPIVACAINE/NS/PF 300 MCG/150 ML RTUINJ EPI ONE (21:25)
[2020-08-12] MEDS ORDERED: ROPIVACAINE HCL 0.2% INJ/PF (2 MG/ML) 20 ML SDV ONE (21:25)
[2020-08-12] MEDS ORDERED: EPHEDRINE SULFATE INJ 50 MG/1 ML AMPULE ONE (21:25)
[2020-08-12 21:38] LABS: URINE AMPHETAMINES SCREEN NEGATIVE; URINE BARBITURATES SCREEN NEGATIVE; URINE BENZODIAZEPINES SCREEN NEGATIVE; URINE COCAINE SCREEN NEGATIVE; URINE MARIJUANA (THC) SCREEN NEGATIVE; URINE METHADONE SCREEN NEGATIVE; URINE PHENCYCLIDINE SCREEN NEGATIVE
[2020-08-13] MEDS ORDERED: PSEUDOEPHEDRINE HCL 30 MG TABLET PO PRN (01:57)
[2020-08-13] MEDS ORDERED: DIPH/PERTUSS(ACELL)/TETANUS VAC/PF 0.5 ML SYR (>=10YO) IM PRN (01:57)
[2020-08-13] MEDS ORDERED: NA PHOS,M-B/NA PHOS,DI-BA (ADULT) 133 ML ENEMA PR PRN (01:57)
[2020-08-13] MEDS ORDERED: DIBUCAINE 1% OINTMENT 28 GM TP PRN (01:57)
[2020-08-13] MEDS ORDERED: DIPHENHYDRAMINE HCL 25 MG CAPSULE PO PRN (01:57)
[2020-08-13] MEDS ORDERED: BENZOCAINE/MENTHOL AEROSOL SPRAY 56 ML TOP PRN (01:57)
[2020-08-13] MEDS ORDERED: MEASLES,MUMPS&RUBELLA VACC/PF 0.5 ML VIAL SUBCUT PRN (01:57)
[2020-08-13] MEDS ORDERED: PROMETHAZINE HCL 25 MG TABLET PO PRN (01:57)
[2020-08-13] MEDS ORDERED: MAGNESIUM HYDROXIDE SUSP 30 ML UDCUP PO PRN (01:57)
[2020-08-13] MEDS ORDERED: PROMETHAZINE HCL 25 MG SUPP.RECT PR PRN (01:57)
[2020-08-13] MEDS ORDERED: ACETAMINOPHEN WITH CODEINE #3 TABLET PO PRN (01:57)
[2020-08-13] MEDS ORDERED: PROMETHAZINE HCL INJ 25 MG/1 ML VIAL IV PRN (01:57)
[2020-08-13] MEDS ORDERED: OXYTOCIN/0.9 % SODIUM CHLORIDE 30 UNIT/500 ML RTUINJ IV PRN ×2 (01:57→03:04)
[2020-08-13] MEDS ORDERED: GLYCERIN/WITCH HAZEL LEAF 1 EACH MED..WIPE TP PRN (01:57)
[2020-08-13] MEDS ORDERED: ZOLPIDEM TARTRATE 5 MG TABLET PO PRN (01:57)
[2020-08-13] MEDS ORDERED: ACETAMINOPHEN 325 MG TABLET PO PRN (01:57)
[2020-08-13] MEDS ORDERED: MISOPROSTOL 0.2 MG TABLET PR PRN (03:04)
--- NOTE | 2020-08-13 03:26 | Warning Signs in Babies ---
VOD Warning Signs Datetime Report Generated by [facility]: 08/13/2020 03:25 VOD#608 -Warning Signs in Babies: Needs to be viewed. (08/08/2020 07:54:Humera Sanchez RN)
[2020-08-13] MEDS ORDERED: IBUPROFEN 800 MG TABLET ONE (03:54)
--- NOTE | 2020-08-13 05:30 | Delivery Summary ---
Del Sum A-C Datetime Report Generated by CPN: 08/13/2020 05:29 DELIVERY PERSONNEL DELIVERY PERSONNEL: [id number] Delivery Doctor:: Carolann Hunt MD Labor and Delivery Nurse:: Humera Sanchez RN Nursery Nurse:: Porsha Jon RN Nursery Nurse:: Kaitlyn Villavicencio RN Services Coordinator/SCREEN AND CYCLONE REPAIRER: Mikejaycee Cuellar, NURSING AGENCY MANAGER MATERNAL INFORMATION Delivery Anesthesia: Epidural Medications After Delivery: Pitocin 30 Units in 500ml NS/D5W Estimated Blood Loss (ml): 380 Delivery QBL: 380 Maternal Complications: Abruptio Placenta Other Maternal Complications: GBS pos, vanc Provider Comments: VFI delivered in YENI presentation. No nuchal cord. Shoulders and body delivered without difficulty. Cord doubly clamped and cut and to maternal abdomen. Placenta delivered intact spontaneously. FF at U with mild atony. Cytotec 1000mcg given TN. No perineal laceration. Mother and baby stable upon provider leaving the room. Blood clot delivered with placenta suspect partial abruption - placenta sent for pathology LABOR SUMMARY EDC: 08/14/2020 00:00 No. Babies in Womb: 1 Attempted: No Labor Anesthesia: Epidural LABOR INFORMATION Reason for Induction: Not Applicable Onset of Labor: 08/12/2020 18:00 Complete Dilatation: 08/13/2020 02:36 Oxytocin: N/A Group B Beta Strep: Positive Antibiotics # of Doses: 1 Antibiotics Time of Last Dose: 08/12/2020 21:00 Name of Antibiotic Given: Vancomycin Steroids Given: None Reason Steroids Not Administered: Not Applicable MEMBRANES Membranes Rupture Method: Artificial Rupture of Membranes: 08/13/2020 01:48 Length of Rupture (hr): 1.00 Amniotic Fluid Color: Clear Amniotic Fluid Amount: Moderate Amniotic Fluid Odor: Normal STAGES OF LABOR Stage 1 hr: 8 Stage 1 min: 36 Stage 2 hr: 0 Stage 2 min: 12 Stage 3 hr: 0 Stage 3 min: 3 Total Time in Labor hr: 8 Total Time in Labor min: 51 VAGINAL DELIVERY Episiotomy: None Laceration #1: None Laceration Extension #1: N/A Laceration Repair: Yes Sponge Count Correct: Yes Sharps Count Correct: Yes CSECTION DELIVERY Primary Indication: N/A Secondary Indication: N/A CSection Incidence: N/A Labor: N/A Elective: N/A CSection Incision: N/A BABY A INFORMATION Delivery Date/Time: 08/13/2020 02:48 Method of Delivery: Vaginal Nurse Controlled Delivery: No Born in Route : No : N/A Forceps: N/A Vacuum Extraction: N/A Shoulder Dystocia : No PRESENTATION/POSITION BABY A Presentation: Cephalic Cephalic Presentation: Vertex Vertex Position: Left Occipital Anterior Breech Presentation: N/A PLACENTA INFORMATION BABY A Placenta Delivery Time : 08/13/2020 02:51 Placenta Method of Delivery: Spontaneous Placenta Status: Delivered SCORES BABY A Heart Rate 1 min: >100 bpm Resp Effort 1 min: Good Cry Reflex Irritability 1 min: Cough or Sneeze or Pulls Away Muscle Tone 1 min: Active Motion Color 1 min: Body [place], Extremities Blue Resuscitation Effort 1 min: Tactile Stimulation SCORE 1 MIN: 9 Heart Rate 5 min: >100 bpm Resp Effort 5 min: Good Cry Reflex Irritability 5 min: Cough or Sneeze or Pulls Away Muscle Tone 5 min: Active Motion Color 5 min: Body [place], Extremities Blue SCORE 5 MIN: 9 INFANT INFORMATION BABY A Gestational Age at Delivery: 39.6 Gestational Status: Full Term- 39- 40.6 Weeks Infant Outcome : Liveborn Condition : Stable Sex: Female IDENTIFICATION BABY A Verification Date/Time: 08/13/2020 04:40 ID Band Number: [id number] Mother's Name Verified: Yes RN Verifying Infant: Chalman, A. RN Additional Verifying Personnel: Mclean, L. RN WEIGHT/LENGTH BABY A Infant Birthweight (gm): 4110 Weight (lb): 9 Infant Weight (oz): 1 Length (in): 20.00 Infant Length (cm): 50.80 CORD INFORMATION BABY A No. Cord Vessels: 3 Nuchal Cord : N/A Cord Blood Taken: Yes-For Eval (Mom's Blood Type - or O+) Infant Suction: Mouth; Nose ASSESSMENT BABY A Physical Findings- Other: See full nursery telephone interviewer Skin to Skin: Yes BABY B INFORMATION : N/A SIGNATURES Signature: Electronically signed by Carolann Hunt MD ([facility]) on 08/13/2020 at 03:08 with User ID: [email or web address]
--- NOTE | 2020-08-13 05:30 | Birth Certificate Data ---
Cert Data Datetime Report Generated by CPN: 08/13/2020 05:29 CERTIFICATE DATA Delivery Provider: Carolann Hunt MD (08/08/2020 07:54:Radha Rendon RN) 47a. Care: Yes (08/08/2020 07:54:Humera Sanchez RN) 48a. Number of Prev Live Births: 2 (08/08/2020 07:54:Lolis Mcelroy RN) 48e. Losses: 0 (08/08/2020 07:54:Lolis Mcelroy RN) RISK FACTORS IN THIS 49a. Diabetes: No (08/08/2020 07:54:Lolis Mcelroy RN) 49b. Hypertension: No (08/08/2020 07:54:Lolis Mcelroy RN) 49c. Previous Births: 0 (08/08/2020 07:54:Lolis Mcelroy RN) 49d. Stillborns: No (08/08/2020 07:54:Lolis Mcelroy RN) 49d. IUGR: No (08/08/2020 07:54:Lolis Mcelroy RN) 49e. Infertility Treatment: No (08/08/2020 07:54:Lolis Mcelroy RN) 49f. Previous Cesareans: 0 (08/08/2020 07:54:Lolis Mcelroy RN) Mother's Height 50b. Height Inches: 62 (08/08/2020 08:16:QS system process) Mother's Weight 51a. Pre- Weight (lbs): 145 (08/08/2020 07:54:Humera Sanchez RN) 51b. Weight at Delivery (lbs): 185 (08/08/2020 08:16:QS system process) 52. Dt Last Normal Menses Began: 08/14/2020 00:00 (08/08/2020 07:54:Lolis Mcelroy RN) Infections Present/Treated 53a. Gonorrhea: No (08/08/2020 07:54:Lolis Mcelroy RN) Results this Hospital Visit : Negative (08/08/2020 07:54:Lolis Mcelroy RN) 53b. Syphilis: No (08/08/2020 07:54:Lolis Mcelroy RN) 53c. Chlamydia: No (08/08/2020 07:54:Lolis Mcelroy RN) Results this Hospital Visit: Negative (08/08/2020 07:54:Lolis Mcelroy RN) 53d. Hepatitis B: No (08/08/2020 07:54:Lolis Mcelroy RN) 53h. Mother Tested for HBsAG: No (08/08/2020 07:54:Lolis Mcelroy RN) 53i. Date Tested: 12/31/2019 00:00 (08/08/2020 07:54:Humera Sanchez RN) Obstetric Procedures 54a, b, c. Obstetric Procedures: Ultrasound (08/08/2020 07:54:Lolis Mcelroy, RN) Cigarette Smoking Cigarette Smoking: Never Smoker. [id number] (08/08/2020 07:54:Lolis Mcelroy, RN) Onset of Labor 56a. PROM >12 Hrs: 1.00 (08/08/2020 07:54:QS system process) 56b. Precipitous Labor <3 Hrs: 8 (08/08/2020 07:54:QS system process) 56c. Prolonged Labor > 20 Hrs: 8 (08/08/2020 07:54:QS system process) 57a. Induction of Labor: N/A (08/08/2020 07:54:Radha Rendon RN) 57c. Non-Vertex Presentation A: Vertex (08/08/2020 07:54:Radha Rendon RN) 57d. Steroids - Lung Mat: None (08/08/2020 07:54:Radha Rendon RN) 57d. Steroids - Lung Mat: Not Applicable (08/08/2020 07:54:Radha Rendon RN) 57e. Antibiotics During Labor: Vancomycin (08/08/2020 07:54:Carolann Hunt MD ([facility])) 57e. Antibiotics During Labor: 08/12/2020 21:00 (08/08/2020 07:54:Radha Rendon RN) 57g. Moderate/Heavy Meconium: Clear (08/13/2020 01:48:Humera Sanchez RN) 57h. Intolerance of Labor: N/A (08/08/2020 07:54:Radha Rendon RN) : N/A (08/08/2020 07:54:Radha Rendon RN) 57i. Epidural/Spinal Anesthesia: Epidural (08/08/2020 07:54:Radha Rendon RN) Method of Delivery 58a. Forceps - Unsuccessful A: N/A (08/08/2020 07:54:Radha Rendon RN) 58b. Vacuum - Unsuccessful A: N/A (08/08/2020 07:54:Radha Ring, RN) 58c. Presentation at 58c. Presentation at - A : Vertex (08/08/2020 07:54:Radha Ring, RN) 58c. Presentation at - A : N/A (08/08/2020 07:54:Radha Rendon, RN) 58c. Presentation at - A : Cephalic (08/08/2020 07:54:Radha Rendon, RN) Final Route and Method of Del 58d. Baby A Route/Delivery: Vaginal (08/13/2020 02:48:Humera Sanchez RN) 58e. Trial of Labor Attempted: No (08/08/2020 07:54:Radha Rendon RN) 58e. Trial of Labor Attempted A: N/A (08/08/2020 07:54:Radha Rendon RN) 58e. Trial of Labor Attempted B: N/A (08/08/2020 07:54:Radha Rendon RN) Maternal Morbidity 59b. 3rd or 4th Degree Lacs: None (08/08/2020 07:54:Carolann Hunt MD ([facility])) Birthweight Baby A: 4110 (08/08/2020 07:54:Humera Sanchez RN) 60a. Pounds : 9 (08/08/2020 07:54:QS system process) 60b. Ounces: 1 (08/08/2020 07:54:QS system process) 61. GA at Delivery Baby A: 39.6 (08/08/2020 07:54:Radha Rendon RN) : Full Term- 39- 40.6 Weeks (08/08/2020 07:54:QS system process) 62a. 5 Minute Baby A: 9 (08/08/2020 07:54:QS system process)
[2020-08-13] MEDS: IBUPROFEN 800 MG TABLET PO SCH ×3 (06:27→22:00)
[2020-08-13] MEDS: FAMOTIDINE 20 MG TABLET PO SCH ×2 (10:25→21:40)
[2020-08-13] MEDS: DOCUSATE SODIUM 100 MG CAPSULE PO SCH ×2 (10:25→18:35)
[2020-08-13] MEDS: FERROUS SULFATE 325 MG TABLET PO SCH ×2 (10:25→18:35)
[2020-08-13] MEDS: PRENATAL VITAMIN W DHA CAPSULE PO SCH (10:25)
[2020-08-13] MEDS: SENNOSIDES/DOCUSATE 8.6-50 MG 1 EACH TABLET PO SCH (10:25)
[2020-08-13] MEDS: ACETAMINOPHEN WITH CODEINE #3 TABLET PO PRN ×2 (16:03→21:39)
[2020-08-14] MEDS: IBUPROFEN 800 MG TABLET PO SCH ×3 (05:41→22:27)
[2020-08-14 06:46] LABS: HEMATOCRIT 30.9 % (36.0-47.0); HEMOGLOBIN 10.5 g/dL (12.0-15.5); MEAN CORPUSCULAR HEMOGLOBIN 29.3 pg (27.0-33.4); MEAN CORPUSCULAR VOLUME 86 fl (80-97); PLATELET COUNT 103 10^3/uL (150-450); RED BLOOD COUNT 3.58 10^6/uL (3.72-5.28); RED CELL DISTRIBUTION WIDTH 13.7 % (11.5-14.0); WHITE BLOOD COUNT 12.4 10^3/uL (4.0-10.5)
[2020-08-14] MEDS: ACETAMINOPHEN WITH CODEINE #3 TABLET PO PRN ×2 (07:57→22:19)
[2020-08-14] MEDS: SENNOSIDES/DOCUSATE 8.6-50 MG 1 EACH TABLET PO SCH (11:15)
[2020-08-14] MEDS: FAMOTIDINE 20 MG TABLET PO SCH ×2 (11:15→22:19)
[2020-08-14] MEDS: FERROUS SULFATE 325 MG TABLET PO SCH ×2 (11:15→17:21)
[2020-08-14] MEDS: PRENATAL VITAMIN W DHA CAPSULE PO SCH (11:15)
[2020-08-14] MEDS: DOCUSATE SODIUM 100 MG CAPSULE PO SCH ×2 (11:15→17:21)
--- NOTE | 2020-08-14 12:27 | PDOC PROGRESS REPORT ---
Subjective-OB Progress Note for:: 08/14/20 Subjective: Pt doing well, no concerns. She reports light bleeding, reg diet and voiding w/o difficulty Physical Exam (OB) Vital Signs: Temp Pulse Resp BP Pulse Ox 97.9 F 64 16 101/58 L 97 08/14/20 07:33 08/14/20 07:33 08/14/20 07:33 08/14/20 07:33 08/14/20 07:33 Intake & Output 08/13/20 08/14/20 08/15/20 06:59 06:59 06:59 Intake Total 350 Output Total 700 Balance -350 - PIH/Pre-Eclampsia Clonus: Negative Headache: Absent Epigastric Pain: No Visual Changes: No - Maternal Morbidity 59. Maternal Morbidity (serious complications experinced by the mother associated with labor and delivery: None of the above - Lochia Lochia Amount: Scant < 10 ml Lochia Color: Rubra/Red - Abdomen Description: Soft, Round Hernia Present: No Fundal Description: Firm, Midline Fundal Height: u/u - u/2 Objective-Diagnostic Laboratory: 08/14/20 06:19 08/14/20 06:19 WBC 12.4 H RBC 3.58 L Hgb 10.5 L Hct 30.9 L MCV 86 MCH 29.3 MCHC 34.0 RDW 13.7 Plt Count 103 L Assessment and Plan(PN) - Assessment and Plan (1) Active labor at term Is this a current diagnosis for this admission?: Yes (2) Carrier or suspected carrier of group B Streptococcus Is this a current diagnosis for this admission?: Yes (3) Gestational thrombocytopenia Qualifiers: Trimester: third trimester Qualified Code(s): O99.113 - Other diseases of t he blood and blood-forming organs and certain disorders involving the immune mechanism complicating , third trimester; D69.6 - Thrombocytopenia, unspecified Is this a current diagnosis for this admission?: Yes (4) Vaginal delivery Is this a current diagnosis for this admission?: Yes - Time Spent with Patient Time with patient: Less than 15 minutes Medications reviewed and adjusted accordingly: Yes - Disposition Anticipated Discharge Disposition: Home, Self Care Anticipated Discharge Timeframe: within 24 hours
[2020-08-15] MEDS: IBUPROFEN 800 MG TABLET PO SCH (05:20)
[2020-08-15 08:17] VITALS: BP 115/70
[2020-08-15] MEDS: DOCUSATE SODIUM 100 MG CAPSULE PO SCH (09:10)
[2020-08-15] MEDS: PRENATAL VITAMIN W DHA CAPSULE PO SCH (09:10)
[2020-08-15] MEDS: FERROUS SULFATE 325 MG TABLET PO SCH (09:11)
[2020-08-15] MEDS: SENNOSIDES/DOCUSATE 8.6-50 MG 1 EACH TABLET PO SCH (09:11)
[2020-08-15] MEDS: FAMOTIDINE 20 MG TABLET PO SCH (09:11)
--- NOTE | 2020-08-15 10:23 | PDOC DISCHARGE SUMMARY ---
Impression - Admit/DC Date/PCP Admission Date/Primary Care Provider: 08/12/20 20:47 HUNG ESQUIVEL MD Discharge Date: 08/15/20 - PP day #2, doing well, no complaints, UOB, voiding, A+, - Discharge Diagnosis (1) Active labor at term Is this a current diagnosis for this admission?: Yes (2) Carrier or suspected carrier of group B Streptococcus Is this a current diagnosis for this admission?: Yes (3) Gestational thrombocytopenia Is this a current diagnosis for this admission?: Yes (4) Vaginal delivery Is this a current diagnosis for this admission?: Yes - Additional Information Resuscitation Status: Full Code Discharge Diet: As Tolerated, Regular Discharge Activity: Activity As Tolerated Referrals: HUNG ESQUIVEL MD [Primary Care Provider] - Prescriptions: Ibuprofen [Motrin 800 mg Tablet] 800 mg PO Q8 #60 tablet Home Medications: Vit,Calc76/Iron/Folic [Pnv 29-1 Tablet] 1 tab PO DAILY 06/30/18 Ibuprofen [Motrin 800 mg Tablet] 800 mg PO Q8 #60 tablet 08/15/20 HPI Reason(s) for Admission: Onset of Labor Procedures: Ultrasound Intrapartum Procedure(s): Spontaneous Vaginal Delivery Complication(s): Hemorrhage-Uterine Atony, Other - partial abruption noted at delivery Hospital Course 59. Maternal Morbidity (serious complications experinced by the mother associated with labor and delivery: None of the above Results Laboratory Results: WBC 12.4 10^3/uL (4.0-10.5) H 08/14/20 06:19 RBC 3.58 10^6/uL (3.72-5.28) L 08/14/20 06:19 Hgb 10.5 g/dL (12.0-15.5) L 08/14/20 06:19 Hct 30.9 % (36.0-47.0) L 08/14/20 06:19 MCV 86 fl (80-97) 08/14/20 06:19 MCH 29.3 pg (27.0-33.4) 08/14/20 06:19 MCHC 34.0 g/dL (32.0-36.0) 08/14/20 06:19 RDW 13.7 % (11.5-14.0) 08/14/20 06:19 Plt Count 103 10^3/uL (150-450) L 08/14/20 06:19 Lymph % (Auto) 18.0 % (13-45) 08/12/20 21:00 [place] % (Auto) 9.6 % (3-13) 08/12/20 21:00 Eos % (Auto) 0.7 % (0-6) 08/12/20 21:00 Baso % (Auto) 0.3 % (0-2) 08/12/20 21:00 Absolute Neuts (auto) 10.0 10^3/uL (1.7-8.2) H 08/12/20 21:00 Absolute Lymphs (auto) 2.5 10^3/uL (0.5-4.7) 08/12/20 21:00 Absolute Monos (auto) 1.3 10^3/uL (0.1-1.4) 08/12/20 21:00 Absolute Eos (auto) 0.1 10^3/uL (0.0-0.6) 08/12/20 21:00 Absolute Basos (auto) 0.0 10^3/uL (0.0-0.2) 08/12/20 21:00 Seg Neutrophils % 71.4 % (42-78) 08/12/20 21:00 Urine Color RED 08/12/20 20:36 Urine Appearance CLOUDY 08/12/20 20:36 Urine pH 8.0 (5.0-9.0) 08/12/20 20:36 Ur Specific [place] 1.013 08/12/20 20:36 Urine Protein 100 mg/dL (NEGATIVE) H 08/12/20 20:36 Urine Glucose (UA) NEGATIVE mg/dL (NEGATIVE) 08/12/20 20:36 Urine Ketones NEGATIVE mg/dL (NEGATIVE) 08/12/20 20:36 Urine Blood LARGE (NEGATIVE) H 08/12/20 20:36 Urine Nitrite NEGATIVE (NEGATIVE) 08/12/20 20:36 Urine Bilirubin NEGATIVE (NEGATIVE) 08/12/20 20:36 Urine Urobilinogen NEGATIVE mg/dL (<2.0) 08/12/20 20:36 Ur Leukocyte Esterase MODERATE (NEGATIVE) H 08/12/20 20:36 Urine Ascorbic Acid NEGATIVE (NEGATIVE) 08/12/20 20:36 Urine Opiates Screen NEGATIVE 08/12/20 20:36 Urine Methadone Screen NEGATIVE 08/12/20 20:36 Ur Barbiturates Screen NEGATIVE 08/12/20 20:36 Ur Phencyclidine Scrn NEGATIVE 08/12/20 20:36 Ur Amphetamines Screen NEGATIVE 08/12/20 20:36 U Benzodiazepines Scrn NEGATIVE 08/12/20 20:36 Urine Cocaine Screen NEGATIVE 08/12/20 20:36 U Marijuana (THC) Screen NEGATIVE 08/12/20 20:36 RPR NONREACTIVE (NONREACTIVE) 08/12/20 21:00 Blood Type A POSITIVE 08/12/20 21:00 Antibody Screen NEGATIVE 08/12/20 21:00 Plan Health Concerns: watch PP bleeding Plan of Treatment: d/c home, f/up with [facility] in 4 wks for PP check up Time Spent: Less than 30 Minutes
== END 2020-08-15 12:58 | disposition home or self-care (01) | DRG 807 ==
LOC: LC 20:29 → LR 20:47 → 2S 08-13 05:30
PROVIDERS: ADMIT Student in an Organized Health Care Education/Training Program; ATTEND Student in an Organized Health Care Education/Training Program
PROC: 10E0XZZ Delivery of Products of Conception, External Approach (ICD-10-PCS; principal; 2020-08-13)
PROC: 10907ZC Drainage of Amniotic Fluid, Therapeutic from Products of Conception, Via Natural or Artificial Opening (ICD-10-PCS; 2020-08-13)
DX: O99.824 Streptococcus B carrier state complicating childbirth (principal); Z37.0 Single live birth; O99.12 Other diseases of the blood and blood-forming organs and certain disorders involving the immune mechanism complicating childbirth; D69.6 Thrombocytopenia, unspecified; Z20.828 Contact with and (suspected) exposure to other viral communicable diseases; O45.8X3 Other premature separation of placenta, third trimester; Z88.0 Allergy status to penicillin; Z3A.39 39 weeks gestation of pregnancy
CPT/HCPCS: 1967; 36415; 59025; 80307; 81005; 85025; 85027; 86592; 86850; 86900; 86901; 88307; J2590; J2795; J3010; J3370; J3490; J7060